=== PATIENT | female | born 1990 | race Caucasian/White ===

== ENCOUNTER → 2017-01-24 | Outpatient (CLI) | payer BC | END | disposition home or self-care (01) | LOC: LABWHC1 11:50 | PROVIDERS: ATTEND Obstetrics & Gynecology | DX: Z34.01 Encounter for supervision of normal first pregnancy, first trimester (principal); Z3A.00 Weeks of gestation of pregnancy not specified | CPT/HCPCS: 36415; 84702; 86850; 86900; 86901 ==

== ENCOUNTER → 2017-01-26 | Outpatient (CLI) | payer BC | END | disposition home or self-care (01) | LOC: LABWHC1 07:34 | PROVIDERS: ATTEND Obstetrics & Gynecology | DX: Z34.01 Encounter for supervision of normal first pregnancy, first trimester (principal) | CPT/HCPCS: 36415; 84702 ==

== ENCOUNTER 2017-08-16 09:12 | Outpatient (CLI) | payer BC ==
[2017-08-16 13:16] VITALS: BP 131/73; PULSE 87; RESP 18; TEMP 98.5
--- NOTE | 2017-08-17 06:35 | P.MSEPDOC ---
Presenting Problems - Arrival Data Date of Arrival on Unit: 08/16/17 Time of Arrival on Unit: 09:12 Mode of Transport: Ambulatory - Complaint OB-Reason for Admission/Chief Complaint: Decreased Movement Medical History - Information : 1 Para: 0 Term: 0 : 0 Abortions: Spontaneous or Elective: 0 Number of Living Children: 0 - Gestational Age Gestational Age by SALINA (wks/days): 33 Weeks and 3 Days Review of Systems - Review of Systems Constitutional: No problems Breast: No problems ENT: No problems Cardiovascular: No problems Respiratory: No problems Gastrointestinal: No problems Genitourinary: No problems Musculoskeletal: No problems Neurological: No problems Skin: No problems Vital Signs - Temperature Temperature: 98.5 F Temperature Source: Temporal Artery Scan - Pulse Brachial Pulse Rate: 87 Pulse Assessment Method: Automatic Cuff - Respirations Respiratory Rate: 18 Oxygen Delivery Method: Room Air O2 Sat by Pulse Oximetry: 97 - Blood Pressure Right Arm Blood Pressure: 131/73 Blood Pressure Mean: 92 Blood Pressure Source: Automatic Cuff Medical Screen Scoring (Pre) - Cervical Exam Dilation: Exam Deferred Effacement: Exam Deferred Membranes: Intact - Uterine Contractions Frequency: N/A Duration: N/A Intensity: N/A - Maternal Vital Signs Maternal Temperature: N/A Maternal Blood Pressure: N/A Signs of Preeclampsia: N/A Maternal Respirations: N/A - Pain Assessment Pain Scale Used: Numeric (1 - 10) Pain Intensity: 0 - Assessment Baseline FHR: 140 Heart Rate - NICHD Category: Category I (Normal) = 0 NST: Reactive Position: N/A Station: N/A - Total Score Total Score (Pre): 0 Physician Notification (Pre) - Physician Notified Physician Notified Date: 08/16/17 Physician Notified Time: 09:50 Physician/Practitioner Notifed:: dr grant Spoke With: dr grant - Notification Comment Comment: Monitor in triage for a full hour and then if reactive nst may discharge home. Disposition - Disposition OB Disposition: Triage, Discharge to home, Written follow up instructions reviewed Discharge Date: 08/16/17 Discharge Time: 10:25 I agree with the RN Medical Screening Exam: Yes Risk & Benefit of care provided described in d/c instruction: Yes Diagnosis: RELATED CONDITIONS, UNSPECIFIED, THIRD TRIMESTER
== END 2017-08-16 10:25 | disposition home or self-care (01) ==
LOC: FBPOP 09:12
PROVIDERS: ATTEND Obstetrics & Gynecology
DX: O26.93 Pregnancy related conditions, unspecified, third trimester (principal); Z3A.33 33 weeks gestation of pregnancy
CPT/HCPCS: 59025; 99213

== ENCOUNTER 2017-09-28 05:44 | Inpatient (IN) | payer BC ==
[2017-09-28] MEDS ORDERED: CARBOPROST TROMETHAMINE 250 MCG/ML 1 ML AMP IM PRN (05:54)
[2017-09-28] MEDS ORDERED: METHYLERGONOVINE 0.2 MG/ML 1 ML AMP IM PRN (05:54)
[2017-09-28] MEDS ORDERED: OXYTOCIN 20 UNITS/1000 ML NS 1,000 ML IV SCH ×2 (05:54→14:46)
[2017-09-28] MEDS ORDERED: LIDOCAINE 1% (PF) 10 MG/ML (30 ML SDV) SQ PRN (05:54)
[2017-09-28] MEDS ORDERED: TERBUTALINE 1 MG/ML VIAL SQ PRN (05:54)
[2017-09-28] MEDS ORDERED: OXYTOCIN 10 UNIT/ML 1 ML VIAL IM PRN (05:54)
[2017-09-28] MEDS: LACTATED RINGERS 1,000 ML IV SCH ×3 (06:00→11:54)
--- NOTE | 2017-09-28 06:10 | P.HPOB ---
History of Present Illness H&P Date: 09/28/17 Chief Complaint: Requested induction of labor. This patient is a pleasant 27-year-old 1 para 0 female estimated date of confinement 10/01/2017 estimated gestational age 39-4/7 weeks gestation who is admitted to labor and delivery for requested induction of labor. Patient's care has been uncomplicated. Patient and her at this time have requested induction of labor. Review of Systems Gastrointestinal: Reports heartburn Genitourinary: Reports Menstruation: Reports amenorrhea Past Medical History Past Medical History: No Reported History History of Any Multi-Drug Resistant Organisms: None Reported Past Surgical History: Orthopedic Surgery Past Anesthesia/Blood Transfusion Reactions: No Reported Reaction Past Psychological History: No Psychological Hx Reported Smoking Status: Never smoker Past Alcohol Use History: None Reported Past Drug Use History: None Reported Medications and Allergies Home Medications Medication Instructions Recorded Confirmed Type Pnv,Calcium 72/Iron/Folic Acid 1 tab PO DAILY 08/16/17 09/28/17 History [ Plus Tablet] Allergies Allergy/AdvReac Type Severity Reaction Status Date / Time No Known Allergies Allergy Verified 09/28/17 05:53 Exam - Vital Signs Vital signs: Intake and Output 09/27/17 09/27/17 09/28/17 14:59 22:59 06:59 Other: Weight 83.007 kg - OBG Physical Exam Abdomen: bowel sounds normal, no diffuse tenderness, no bruit present, no guarding noted, no hepatomegaly, no splenomegaly, no mass Vulva: both: normal Vagina: normal moisture, no discharge Cervix: Cervix is 2 cm 80% effaced -2 station. Cervix: no lesion, no discharge Uterus: enlarged (Fundal height is 39 cm) Results blood work shows she is O positive, rubella immune, RPR nonreactive, hepatitis B negative, Glucola was abnormal with a normal three-hour gtt. Group B strep was negative, ultrasounds have showed adequate growth with estimated weight at this time is 8 pounds. Assessment and Plan (1) Third trimester Narrative/Plan: This is a pleasant 27-year-old 1 para 0 female 39-4/7 weeks gestation admitted to labor and delivery for requested induction of labor. Plan at this time is induction of labor and anticipate vaginal delivery. Current Visit: Yes Status: Acute Code(s): Z34.93 - ENCNTR FOR SUPRVSN OF NORMAL PREG, UNSP, THIRD TRIMESTER SNOMED Code(s): 50050238 (2) Elective induction of labor planned Current Visit: Yes Status: Acute Code(s): MBH0613 - SNOMED Code(s): 499660606
[2017-09-28 06:23] LABS: Basophils # (A) 0.1 k/uL (0-0.2); Basophils % (A) 1 %; Eosinophils # (A) 0.1 k/uL (0-0.7); Eosinophils % (A) 1 %; HCT 39.8 % (34.0-46.0); Lymphocytes # (A) 1.5 k/uL (1.0-4.8); Lymphocytes % (A) 15 %; MCHC 35.3 g/dL (31.0-37.0); MCV 87.8 fL (80.0-100.0); Mean Platelet Volume 7.9; Monocytes # (A) 0.6 k/uL (0-1.0); Monocytes % (A) 6 %; Neutrophils # (A) 7.4 k/uL (1.3-7.7); Neutrophils % (A) 76 %; Platelet Count 202 k/uL (150-450); RBC 4.53 m/uL (3.80-5.40); RDW 12.8 % (11.5-15.5); WBC 9.8 k/uL (3.8-10.6)
[2017-09-28 07:35] VITALS: BMI 27.8
[2017-09-28] MEDS ORDERED: fentaNYL (PF) 50 MCG/ML 5 ML AMP ONE (09:23)
[2017-09-28] MEDS ORDERED: SODIUM CHLORIDE 0.9% 100 ML BAG ONE (09:23)
[2017-09-28] MEDS ORDERED: BUPIVACAINE (PF) 0.25% 30 ML VIAL ONE (09:23)
[2017-09-28] MEDS ORDERED: BUPIVACAINE (PF) 0.5% 12.5 ML, fentaNYL (PF) 200 MCG in SODIUM CHLORIDE 0.9% 83.5 ML EPIDURAL ONE (10:07)
[2017-09-28] MEDS ORDERED: BENZOCAINE/MENTHOL SPRAY 1 GM/SPRAY AEROSOL TOPICAL PRN (14:46)
[2017-09-28] MEDS ORDERED: WITCH HAZEL 1 EACH MED..PAD TOPICAL PRN (14:46)
[2017-09-28] MEDS ORDERED: diphenhydrAMINE 25 MG CAP PO PRN (14:46)
[2017-09-28] MEDS ORDERED: BISACODYL 10 MG SUPP RECTAL PRN (14:46)
[2017-09-28] MEDS ORDERED: SENNOSIDES-DOCUSATE SODIUM 1 EACH TAB PO SCH (14:46)
[2017-09-28] MEDS ORDERED: HYDROCORTISONE 2.5% RECTAL CREAM 30 GM TUBE RECTAL PRN (14:46)
[2017-09-28] MEDS ORDERED: diphenhydrAMINE 50 MG/ML 1 ML VIAL IVP PRN (14:46)
[2017-09-28] MEDS ORDERED: SIMETHICONE 80 MG CHEWABLE PO PRN (14:46)
[2017-09-28] MEDS ORDERED: LANOLIN CREAM 5 GM TUBE TOPICAL PRN (14:46)
[2017-09-28] MEDS ORDERED: ACETAMINOPHEN TAB 325 MG TAB PO PRN (14:46)
[2017-09-28] MEDS ORDERED: ZOLPIDEM 5 MG TAB PO PRN (14:46)
[2017-09-28] MEDS: IBUPROFEN 600 MG TAB PO PRN (15:59)
--- NOTE | 2017-09-28 17:26 | P.PROBDLV ---
Vaginal Delivery Note - . Vaginal Delivery Note: Normal vaginal delivery viable female Apgars are 9 and 9 delivery time is 1422 hrs. Please see dictated H&P for intimate details of this patient's admission. In brief summary this is a pleasant 27-year-old 1 para 0 female 39-4/7 weeks gestation who is admitted to labor and delivery for requested induction of labor. Patient this morning is 3 cm dilated has artificial rupture membranes for clear fluid. Labor is induced with Pitocin per protocol. Patient progresses she does get an epidural for pain control with good relief. Quickly thereafter she continues to progress at that time she is pushing involuntarily and does have some bradycardia to the 80s that does return to baseline between contractions. Patient continues to have bradycardic episodes and is complete and +2 station for this reason infiltrate posterior perineum with 1% lidocaine and a midline episiotomy is made. With approximately 2 pushes thereafter she delivers infant's head over the perineum. Mouth and nares are bulb suctioned. There is no evidence of nuchal cord. Gentle downward traction deliver the anterior and posterior shoulder and rest this infant's body. This is a vigorous viable female infant Apgars are 9 and 9 delivery time is 1422 hrs. has spontaneous respirations and good cry. After delivery of the the infant is late on the mother's abdomen. After the umbilical cord stopped pulsating the cord is doubly clamped and cut. The placenta is then spontaneously delivered intact. She does have a few gushes of blood but the uterus firms up with massage and IV Pitocin. Inspection of the perineum shows a partial third-degree laceration. The rectal sphincter capsule is not completely disrupted. I infiltrate with lidocaine and isolate the portion of the capsule that is disrupted and reapproximate this with interrupted 3-0 Vicryl 4. Excellent reapproximation is noted. The rest of the episiotomy is repaired with 3-0 Vicryl usual fashion. Excellent reapproximation is noted again. Estimated blood loss is probably 400 mL from the uterine atony and from some bleeding but this does respond well as I stated with Pitocin and uterine massage. and mother are stable delivery room. All counts are correct 3. There are no complications.
[2017-09-28 23:44] VITALS: RESP 16
[2017-09-29] MEDS ORDERED: IBUPROFEN 600 MG TAB PO ONE (04:50)
[2017-09-29 05:50] LABS: Basophils % (A) 0 %; Eosinophils % (A) 0 %; HCT 26.8 % (34.0-46.0); Lymphocytes # (A) 1.2 k/uL (1.0-4.8); Lymphocytes % (A) 10 %; MCH 29.8 pg (25.0-35.0); MCHC 34.6 g/dL (31.0-37.0); MCV 86.2 fL (80.0-100.0); Mean Platelet Volume 7.9; Monocytes # (A) 0.7 k/uL (0-1.0); Monocytes % (A) 5 %; Neutrophils # (A) 10.5 k/uL (1.3-7.7); Neutrophils % (A) 84 %; Platelet Count 200 k/uL (150-450); RBC 3.11 m/uL (3.80-5.40); WBC 12.6 k/uL (3.8-10.6)
[2017-09-29 05:53] LABS: HGB 9.3 gm/dL (11.4-16.0)
--- NOTE | 2017-09-29 05:59 | P.PNOBGVD ---
Subjective - Subjective Patient reports: Reports appetite normal, Reports voiding normally, Reports pain well controlled, Reports ambulating normally : doing well Objective - Latest Vital Signs Latest vital signs: Vital Signs Temp Pulse Resp BP 09/28/17 23:41 98.4 F 92 16 117/74 09/28/17 20:00 98.5 F 102 H 18 138/71 09/28/17 16:48 97.9 F 96 14 122/69 09/28/17 16:18 126 H 16 111/56 09/28/17 15:48 121 H 14 117/65 09/28/17 15:27 117 H 14 126/65 09/28/17 15:18 105 H 16 130/63 09/28/17 15:03 114 H 16 114/56 09/28/17 14:48 97 F L 126 H 16 09/28/17 07:26 97.2 F L 131 H 16 Intake and Output 09/28/17 09/28/17 09/29/17 14:59 22:59 06:59 Intake Total 200 Balance 200 Intake: IV 200 Lactated Ringers 1,000 ml 200 @ 125 mls/hr IV .Q8H [facility] Rx#:[id number] Other: # Voids 1 1 Weight 83.007 kg - Exam Lungs: bilateral: normal Chest: Normal S1, Normal S2 Extremities: Present: normal Abdomen: Present: normal appearance, soft Uterus: Present: normal, firm - Labs Labs: Abnormal Lab Results - Last 24 Hours (Table) 09/29/17 Range/Units 05:00 WBC 12.6 H (3.8-10.6) k/uL RBC 3.11 L (3.80-5.40) m/uL Hgb 9.3 L D (11.4-16.0) gm/dL Hct 26.8 L (34.0-46.0) % Neutrophils # 10.5 H (1.3-7.7) k/uL Assessment and Plan Assessment: day #1. Patient is resting without complaints. She wishes to go home later today. Vital signs are stable she is afebrile. Uterus is firm nontender and she is having normal lochia. Hemoglobin today is 9.3. Patient is ambulating and urinating without difficulty. My impression is a normal course. Plan is to continue routine care most likely go home later today. (1) Third trimester Current Visit: Yes Status: Acute Code(s): Z34.93 - ENCNTR FOR SUPRVSN OF NORMAL PREG, UNSP, THIRD TRIMESTER SNOMED Code(s): 59191057 (2) Elective induction of labor planned Current Visit: Yes Status: Acute Code(s): IDK6029 - SNOMED Code(s): 643831322
--- NOTE | 2017-09-29 06:04 | P.DS ---
Providers Date of admission: 09/28/17 05:44 Expected date of discharge: 09/29/17 Attending physician: Nicolas Brown Primary care physician: Hunter Ambrosio - Discharge Diagnosis(es) (1) Third trimester Current Visit: Yes Status: Acute (2) Elective induction of labor planned Current Visit: Yes Status: Acute Hospital Course: Please see dictated H&P for intimate details of this patient's admission. Brief summary this is a pleasant 27-year-old 1 para 0 female 39-4/7 weeks gestation who is admitted to labor and delivery for requested induction of labor. Patient is admitted she has induction of labor goes on have a vaginal delivery viable female infant. Please see dictated delivery note. day 1 patient Procedures: Induction of labor and normal vaginal delivery. Patient Condition at Discharge: Good Plan - Discharge Summary New Discharge Prescriptions: New Ibuprofen [Motrin] 600 mg PO Q6HR PRN #40 tab PRN Reason: Mild Pain Or Fever >= 100.5 No Action Pnv,Calcium 72/Iron/Folic Acid [ Plus Tablet] 1 tab PO DAILY Discharge Medication List Pnv,Calcium 72/Iron/Folic Acid [ Plus Tablet] 1 tab PO DAILY 08/16/17 [ History] Ibuprofen [Motrin] 600 mg PO Q6HR PRN #40 tab 09/29/17 [Rx] Follow up Appointment(s)/Referral(s): Nicolas Brown MD [STAFF PHYSICIAN] - 11/09/17 9:30 am Patient Instructions/Handouts: Vaginal Delivery (DC) Activity/Diet/Wound Care/Special Instructions: No intercourse or anything per vagina for 6 weeks. Please call if any fever, chills, excessive vaginal bleeding, and/or abdominal pain. Discharge Disposition: HOME SELF-CARE
[2017-09-29 08:12] VITALS: BP 129/74; PULSE 91; TEMP 98.5
[2017-09-29] MEDS: IBUPROFEN 600 MG TAB PO PRN (11:19)
== END 2017-09-29 15:32 | disposition home or self-care (01) | DRG 774 ==
LOC: 4FBP 05:44
PROVIDERS: ADMIT Obstetrics & Gynecology; ATTEND Obstetrics & Gynecology
PROC: 3E0R3NZ Introduction of Analgesics, Hypnotics, Sedatives into Spinal Canal, Percutaneous Approach (ICD-10-PCS; principal; 2017-09-28)
PROC: 0DQR0ZZ Repair Anal Sphincter, Open Approach (ICD-10-PCS; principal; 2017-09-28)
PROC: 10E0XZZ Delivery of Products of Conception, External Approach (ICD-10-PCS; principal; 2017-09-28)
PROC: 00HU33Z Insertion of Infusion Device into Spinal Canal, Percutaneous Approach (ICD-10-PCS; principal; 2017-09-28)
PROC: 10907ZC Drainage of Amniotic Fluid, Therapeutic from Products of Conception, Via Natural or Artificial Opening (ICD-10-PCS; principal; 2017-09-28)
PROC: 0W8NXZZ Division of Female Perineum, External Approach (ICD-10-PCS; principal; 2017-09-28)
PROC: 3E033VJ Introduction of Other Hormone into Peripheral Vein, Percutaneous Approach (ICD-10-PCS; principal; 2017-09-28)
DX: O76 Abnormality in fetal heart rate and rhythm complicating labor and delivery (principal); O72.1 Other immediate postpartum hemorrhage; O70.20 Third degree perineal laceration during delivery, unspecified; Z37.0 Single live birth; Z3A.39 39 weeks gestation of pregnancy
CPT/HCPCS: 85025; 88307

== ENCOUNTER 2019-10-15 22:16 | Inpatient (IN) | payer BC ==
[2019-10-15 23:15] LABS: Appearance,Urine Clear (Clear); Bilirubin,Urine Negative (Negative); Blood,Urine Negative (Negative); Color,Urine Colorless; Glucose,Urine (UA) Negative (Negative); Ketones,Urine Negative (Negative); Leukocyte Esterase,Urine Negative (Negative); Nitrite,Urine Negative (Negative); PH, Urine 6.5 (5.0-8.0); Protein,Urine Negative (Negative); Specific Gravity,Urine 1.002 (1.001-1.035); Urobilinogen,Urine <2.0 mg/dL (<2.0)
[2019-10-15 23:19] LABS: Basophils % (A) 0 %; Eosinophils % (A) 1 %; HCT 37.2 % (34.0-46.0); HGB 12.6 gm/dL (11.4-16.0); Lymphocytes # (A) 1.5 k/uL (1.0-4.8); Lymphocytes % (A) 15 %; MCH 29.8 pg (25.0-35.0); MCV 87.7 fL (80.0-100.0); Mean Platelet Volume 8.8; Monocytes # (A) 0.5 k/uL (0-1.0); Monocytes % (A) 5 %; Neutrophils # (A) 7.2 k/uL (1.3-7.7); Neutrophils % (A) 77 %; Platelet Count 220 k/uL (150-450); RBC 4.24 m/uL (3.80-5.40); RDW 12.6 % (11.5-15.5); WBC 9.4 k/uL (3.8-10.6)
[2019-10-15 23:32] LABS: ALT 8 U/L (4-34); AST 17 U/L (14-36); African American GFR (CKD) >90 (>60 ml/min/1.73 sqM); Blood Urea Nitrogen 6 mg/dL (7-17); LDH 340 U/L (313-618); Non-African American GFR(CKD) >90 (>60 ml/min/1.73 sqM); Uric Acid 3.9 mg/dL (3.7-7.4)
[2019-10-15 23:33] LABS: Protein/Creatinine Ratio,Urine 1.04
[2019-10-15 23:41] LABS: INR 0.9 (<1.2); Partial Thromboplastin Time 24.3 sec (22.0-30.0); Prothrombin Time 9.4 sec (9.0-12.0)
--- NOTE | 2019-10-16 01:23 | P.HPOB ---
History of Present Illness H&P Date: 10/16/19 Chief Complaint: Intrauterine at 38 weeks 5 days gestation with pr oteinuria Patient is a 29-year-old G3 to be 1 at 38 weeks 5 days gestation who I spoke with earlier this evening who related that she had an elevated blood pressure at home and had a severe headache. She was instructed to go to labor and delivery where she was evaluated. A category 1 tracing has been noted. It is noted in her laboratory studies that predominantly they were normal. Platelets are 220, AST and ALT are well within normal limits, urine protein is actually showing negative however, her protein creatinine ratio is above 1. This would typically indicate and correlate to a spot protein of 1000 ordered 3-4+ is unclear from my standpoint why there is such a large discrepancy. Due to this abnormal finding and with her continuing to have significant headache and some visual changes indicate potential for severe features of preeclampsia we have discussed specific options for her continued care and evaluation. I did offer to initiate a 24-hour urine and we can verify if her protein really was greater than [address] and make a decision on what to do from that value. I also discussed an induction of labor as she is 38 weeks with suspected atypical preeclampsia. It is noted that she is had almost no elevated blood pressures around her stay and until she and I were discussing delivery plan and she was becoming a little anxious with that her blood pressures did not show any elevation however at that point she had a 140/80 blood pressure. I did allow she and her discussed what they would most want to do as I explained that the only option that I was not really interested in discussing was discharge her to home despite having multiple normal blood pressures as without more evaluation I could not be certain that she did not have or she was not going to become significantly worse due to the protein creatinine ratio being elevated. She has decided that they would like to go ahead and move forward with an induction will plan to admit her and start IV her group B strep is negative therefore we will plan artificial rupture membranes and expectation for delivery later this morning. She had no other significant problems with the has not had any other elevations in her blood pressure throughout the . Of and she is otherwise in very good health. Past Medical History Past Medical History: No Reported History History of Any Multi-Drug Resistant Organisms: None Reported Past Surgical History: Orthopedic Surgery Additional Past Surgical History / Comment(s): knee surgery Past Anesthesia/Blood Transfusion Reactions: No Reported Reaction Smoking Status: Never smoker - Past Family History Father Family Medical History: AFIB, Hypertension Medications and Allergies Home Medications Medication Instructions Recorded Confirmed Type Pnv,Calcium 72/Iron/Folic Acid 1 tab PO DAILY 08/16/17 10/15/19 History [ Plus Tablet] Allergies Allergy/AdvReac Type Severity Reaction Status Date / Time No Known Allergies Allergy Verified 10/15/19 22:30 Exam Osteopathic Statement: *. No significant issues noted on an osteopathic structural exam other than those noted in the History and Physical/Consult. Vital Signs Temp Pulse Resp BP Pulse Ox 10/15/19 22:45 98.1 F 83 18 126/80 98 Intake and Output 10/15/19 10/15/19 10/16/19 14:59 22:59 06:59 Other: Weight 81.647 kg - OBG Physical Exam Breast: both: normal (no masses) Abdomen: bowel sounds normal, no diffuse tenderness, no bruit present, no guarding noted, no hepatomegaly, no splenomegaly, no mass Vulva: both: normal Vagina: normal moisture, no discharge Cervix: no lesion, no discharge Uterus: normal size, normal contour Adnexa: both: normal Anus/Rectum: normal perianal skin, no rectal mass, no hemorrhoids, heme negative Results Result Diagrams: 10/15/19 23:09 10/15/19 23:09 Abnormal Lab Results - Last 24 Hours (Table) 10/15/19 Range/Units 23:09 BUN 6 L (7-17) mg/dL Creatinine 0.39 L (0.52-1.04) mg/dL
[2019-10-16] MEDS ORDERED: TERBUTALINE 1 MG/ML VIAL SQ PRN (01:33)
[2019-10-16] MEDS ORDERED: OXYTOCIN 10 UNIT/ML 1 ML VIAL IM PRN (01:33)
[2019-10-16] MEDS ORDERED: CARBOPROST TROMETHAMINE 250 MCG/ML 1 ML AMP IM PRN (01:33)
[2019-10-16] MEDS ORDERED: LIDOCAINE 0.5% (PF) 5 MG/ML (50 ML SDV) SQ PRN (01:33)
[2019-10-16] MEDS ORDERED: METHYLERGONOVINE 0.2 MG/ML 1 ML AMP IM PRN (01:33)
[2019-10-16] MEDS ORDERED: OXYTOCIN 30 UNITS/500 ML NS 30 UNIT in SALINE 1 500ML.BAG IV SCH (01:45)
[2019-10-16] MEDS: LACTATED RINGERS 1,000 ML IV SCH ×2 (02:24→05:48)
[2019-10-16 02:44] LABS: Basophils % (A) 0 %; Eosinophils % (A) 0 %; HCT 40.2 % (34.0-46.0); HGB 13.5 gm/dL (11.4-16.0); Lymphocytes # (A) 1.7 k/uL (1.0-4.8); Lymphocytes % (A) 14 %; MCH 29.5 pg (25.0-35.0); MCHC 33.7 g/dL (31.0-37.0); MCV 87.4 fL (80.0-100.0); Mean Platelet Volume 8.2; Monocytes # (A) 0.6 k/uL (0-1.0); Monocytes % (A) 5 %; Neutrophils # (A) 9.6 k/uL (1.3-7.7); Neutrophils % (A) 79 %; Platelet Count 222 k/uL (150-450); RDW 12.6 % (11.5-15.5); WBC 12.1 k/uL (3.8-10.6)
[2019-10-16] MEDS ORDERED: ROPIVACAINE 100 MG, fentaNYL (PF) 200 MCG in SODIUM CHLORIDE 0.9% 76 ML EPIDURAL ONE (06:25)
[2019-10-16] MEDS ORDERED: SIMETHICONE 80 MG CHEWABLE PO PRN (10:42)
[2019-10-16] MEDS ORDERED: LANOLIN CREAM 5 GM TUBE TOPICAL PRN (10:42)
[2019-10-16] MEDS ORDERED: HYDROCORTISONE 2.5% RECTAL CREAM 30 GM TUBE RECTAL PRN (10:42)
[2019-10-16] MEDS ORDERED: diphenhydrAMINE 50 MG/ML 1 ML VIAL IVP PRN ×2 (10:42)
[2019-10-16] MEDS ORDERED: BENZOCAINE/MENTHOL SPRAY 1 GM/SPRAY AEROSOL TOPICAL PRN (10:42)
[2019-10-16] MEDS ORDERED: ACETAMINOPHEN TAB 325 MG TAB PO PRN (10:42)
[2019-10-16] MEDS ORDERED: diphenhydrAMINE 50 MG CAP PO PRN (10:42)
[2019-10-16] MEDS ORDERED: diphenhydrAMINE 25 MG CAP PO PRN (10:42)
[2019-10-16] MEDS ORDERED: WITCH HAZEL 1 EACH MED..PAD TOPICAL PRN (10:42)
[2019-10-16] MEDS ORDERED: ZOLPIDEM 5 MG TAB PO PRN (10:42)
[2019-10-16] MEDS ORDERED: OXYTOCIN 20 UNITS/1000 ML NS 1,000 ML IV SCH (10:45)
--- NOTE | 2019-10-16 13:06 | P.PROBDLV ---
Vaginal Delivery Note - . Vaginal Delivery Note: 29-year-old presented at 38 weeks and 5 days to labor and delivery. Her cervix is 1-2 cm dilated, 70% effaced, -2 station. Please see dictated H&P by for specific details on admission and reason for induction of labor. Pitocin was started and amniotomy was performed at 2:58 AM, clear fluid noted. She progressed about 3 cm and did get an epidural. Her cervix was completely dilated 9:52 AM. She pushed, delivered a viable male over a midline episiotomy under epidural anesthesia. Head delivered OA, nuchal cord 1 easily reduced, anterior shoulder delivered gentle downward guidance follow-up with posterior shoulder and rest of body. Nose and mouth bulb suctioned, cord clamped and cut, placed on mother's abdomen. Apgars 9, 9, weight 7 lbs. 10 oz. Placenta delivered spontaneously, intact with three-vessel cord at 10:07 AM. Vagina, cervix, and perineum were inspected. Secondary midline episiotomy was repaired with 3-0 Vicryl. The patient then had some atony, Pitocin had been added to her IV and uterine massage was enough to stop her bleeding. Quantitated blood loss 545 mL from delivery.
[2019-10-16] MEDS: IBUPROFEN 600 MG TAB PO PRN ×2 (14:26→20:57)
[2019-10-16] MEDS: SENNOSIDES-DOCUSATE SODIUM 1 EACH TAB PO SCH (20:53)
[2019-10-17] MEDS: IBUPROFEN 600 MG TAB PO PRN (05:29)
--- NOTE | 2019-10-17 06:15 | P.DS ---
Providers Date of admission: 10/16/19 01:22 Expected date of discharge: 10/17/19 Attending physician: Nicolas Brown Primary care physician: Stated None - Discharge Diagnosis(es) (1) Pre-eclampsia Current Visit: Yes Status: Acute (2) Normal vaginal delivery Current Visit: Yes Status: Acute Hospital Course: Patient presented complaining of a headache and blurred vision and increased blood pressure at home. She was found to have a PC ratio over 1 but all other labs were within normal limits. Her blood pressures here were mostly normal. When she did have one or 2 elevated pressures of 140/80. She underwent induction of labor at 38 weeks and 5 days for atypical preeclampsia. She had a normal vaginal delivery. course was uncomplicated. Her headache is resolved and she doesn't have any more blurred vision. She denies nausea, vomiting, chest pain, shortness of breath or any calf pain. Blood pressures are normal. She'll be discharged home day #1 in stable condition to follow-up with Dr. Brown in 6 weeks. We did discuss that if she has increase in her headaches or blurred vision, right upper quadrant pain she needs to come in for a blood pressure check. Plan - Discharge Summary New Discharge Prescriptions: New Ibuprofen [Motrin] 600 mg PO Q6HR PRN #30 tab PRN Reason: Mild Pain Or Fever >= 100.5 No Action Pnv,Calcium 72/Iron/Folic Acid [ Plus Tablet] 1 tab PO DAILY Discharge Medication List Pnv,Calcium 72/Iron/Folic Acid [ Plus Tablet] 1 tab PO DAILY 08/16/17 [History] Ibuprofen [Motrin] 600 mg PO Q6HR PRN #30 tab 10/17/19 [Rx] Follow up Appointment(s)/Referral(s): Nicolas Brown MD [STAFF PHYSICIAN] - 6 Weeks Discharge Disposition: HOME SELF-CARE
[2019-10-17 07:57] LABS: Basophils % (A) 0 %; Eosinophils # (A) 0.1 k/uL (0-0.7); Eosinophils % (A) 0 %; HCT 32.2 % (34.0-46.0); HGB 11.1 gm/dL (11.4-16.0); Lymphocytes # (A) 1.2 k/uL (1.0-4.8); Lymphocytes % (A) 11 %; MCH 30.6 pg (25.0-35.0); MCHC 34.4 g/dL (31.0-37.0); MCV 88.8 fL (80.0-100.0); Mean Platelet Volume 8.9; Monocytes # (A) 0.5 k/uL (0-1.0); Monocytes % (A) 4 %; Neutrophils # (A) 9.7 k/uL (1.3-7.7); Neutrophils % (A) 84 %; Platelet Count 210 k/uL (150-450); RBC 3.62 m/uL (3.80-5.40); RDW 12.8 % (11.5-15.5); WBC 11.6 k/uL (3.8-10.6)
[2019-10-17] MEDS: SENNOSIDES-DOCUSATE SODIUM 1 EACH TAB PO SCH (08:06)
[2019-10-17 08:48] VITALS: BP 109/71; PULSE 93; RESP 18; TEMP 98.4
[2019-10-17] MEDS ORDERED: PRENATAL VIT-IRON-FOLIC ACID 1 EACH CAP PO SCH (09:00)
== END 2019-10-17 11:30 | disposition home or self-care (01) | DRG 807 ==
LOC: FBPOP 22:16 → 4FBP 10-16 01:22 → OBSVTOIN 10-16 01:22
PROVIDERS: ADMIT Obstetrics & Gynecology; ATTEND Obstetrics & Gynecology
PROC: 10E0XZZ Delivery of Products of Conception, External Approach (ICD-10-PCS; principal; 2019-10-16)
PROC: 0W8NXZZ Division of Female Perineum, External Approach (ICD-10-PCS; 2019-10-16)
PROC: 3E0R3BZ Introduction of Anesthetic Agent into Spinal Canal, Percutaneous Approach (ICD-10-PCS; 2019-10-16)
PROC: 3E033VJ Introduction of Other Hormone into Peripheral Vein, Percutaneous Approach (ICD-10-PCS; 2019-10-16)
PROC: 10907ZC Drainage of Amniotic Fluid, Therapeutic from Products of Conception, Via Natural or Artificial Opening (ICD-10-PCS; 2019-10-16)
DX: O14.14 Severe pre-eclampsia complicating childbirth (principal); Z37.0 Single live birth; O69.81X0 Labor and delivery complicated by cord around neck, without compression, not applicable or unspecified; Z3A.38 38 weeks gestation of pregnancy; Z79.899 Other long term (current) drug therapy; Z82.49 Family history of ischemic heart disease and other diseases of the circulatory system; Z98.890 Other specified postprocedural states
CPT/HCPCS: 59025; 81003; 81050; 82565; 82570; 83615; 84156; 84450; 84460; 84520; 84550; 85025; 85610; 85730; 86850; 86900; 86901; 88307; 99213

== ENCOUNTER → 2021-01-23 | Outpatient (CLI) | payer BC ==
--- NOTE | 2021-01-23 08:53 | US ---
EXAMINATION TYPE: US axilla RT DATE OF EXAM: 01/23/2021 COMPARISON: NONE CLINICAL HISTORY: R59.9 enlarged lymph nodes. Enlarged lymph nodes. Scanned right axilla. Hypoechoic area with hyperechoic center and vascular hilum seen measuring 3.0 x 1.4 x 0.9 cm. IMPRESSION: Nonspecific right axillary lymph node.
--- NOTE | 2021-01-23 08:54 | US ---
EXAMINATION TYPE: US axilla LT DATE OF EXAM: 01/23/2021 COMPARISON: NONE CLINICAL HISTORY: R59.9 enlarged lymph nodes. Enlarged lymph nodes. Scanned left axilla. Two hypoechoic areas with hyperechoic centers and vascular neno seen within the left axilla. #1 measu res 2.2 x 1.1 x 0.4 cm. #2 measures: 1.5 x 1.5 x 0.5 cm. IMPRESSION: Left axillary lymph nodes are nonspecific.
== END | disposition home or self-care (01) ==
LOC: RADUSWWP 08:28
PROVIDERS: ATTEND Family Medicine
DX: R59.0 Localized enlarged lymph nodes (principal)

== ENCOUNTER → 2021-06-19 | Outpatient (CLI) | payer BC ==
[2021-06-19 10:26] VITALS: BP 128/80; PULSE 66; RESP 16; TEMP 98.2
--- NOTE | 2021-06-19 10:59 | P.GSHP ---
History of Present Illness H&P Date: 06/19/21 Chief Complaint: breast masses Jigna is a 31 year old female seen in consultation for Dr. Brown regarding bilateral breast masses. She states she noted the left side first about 2 months ago. She states the right side was noted shortly later. They are not painful. She just finished breast feeding two months ago. Last year she was noted to have some enlarged nodes under each arm. She states they have decreased in size. She has two children the youngest is 1 1/2, she breast fed both. Is not having any abnormal nipple discharge. She has not noted any other lumps masses or nodules of concern in her breast. She's not had any surgery on her breast. She is not complaining of any recent trauma or infection in the breast. CAffiene: 1-2 cups coffee/day nicotine: none chocolate: occasional BCP: used them 5 years, stopped in 2016 hormones: none Family history: maternal grandmother: colon cancer paternal grandmother: colon cancer paternal grandfather: leukemia Hormonal History: Menarche: 15 , breast fed: yes, age at first : 27 BCP: 5 years stopped in 2016 hormones: none Surgical history: two knee surgeries left knee Medical History: none Social History: nicotine: none alcohol: occasional drugs: none - Constitutional Constitutional: Denies chills, Denies fever - EENT Eyes: denies blurred vision, denies pain Ears: deny: decreased hearing, tinnitus Ears, nose, mouth and throat: Denies headache, Denies sore throat - Breasts Breasts: bilateral: as per HPI - Cardiovascular Cardiovascular: Denies chest pain, Denies shortness of breath - Respiratory Respiratory: Denies cough, Denies 7 - Gastrointestinal Gastrointestinal: Denies abdominal pain, Denies diarrhea, Denies nausea, Denies vomiting - Genitourinary (Female) Genitourinary: Denies dysuria, Denies hematuria - Menstruation Comment: irregular, just stopped breast feeding two months ago - Musculoskeletal Musculoskeletal: Denies myalgias - Integumentary Integumentary: Denies pruritus, Denies rash - Neurological Neurological: Denies numbness, Denies weakness - Psychiatric Psychiatric: Denies anxiety, Denies depression - Endocrine Endocrine: Denies fatigue, Denies weight change - Hematologic/Lymphatic Comment: none - Allergic/Immunologic Allergic/Immunologic: Reports as per HPI Past Medical History Past Medical History: No Reported History History of Any Multi-Drug Resistant Organisms: None Reported Past Surgical History: Orthopedic Surgery Additional Past Surgical History / Comment(s): knee surgery Past Anesthesia/Blood Transfusion Reactions: No Reported Reaction Past Psychological History: No Psychological Hx Reported Smoking Status: Never smoker Past Alcohol Use History: None Reported Past Drug Use History: None Reported - Past Family History Father Family Medical History: AFIB, Hypertension Medications and Allergies Home Medications Medication Instructions Recorded Confirmed Type Ibuprofen [Motrin] 600 mg PO Q6HR PRN #30 tab 10/17/19 06/19/21 Rx Multivitamin [Multivitamins Adult 1 each PO DAILY 06/19/21 06/19/21 History Gummies] Allergies Allergy/AdvReac Type Severity Reaction Status Date / Time amoxicillin [From Augmentin] AdvReac Rash/Hives Unverified 06/19/21 10:22 clavulanic acid AdvReac Rash/Hives Unverified 06/19/21 10:22 [From Augmentin] Surgical - Exam Vital Signs Temp Pulse Resp BP Pulse Ox 98.2 F 66 16 128/80 100 06/19/21 10:23 06/19/21 10:23 06/19/21 10:23 06/19/21 10:23 06/19/21 10:23 BMI 21.1 - General no distress - Eyes normal ocular movement - ENT no hearing loss - Neck trachea midline - Respiratory normal respiratory effort - Cardiovascular Rhythm: regular Heart Sounds: normal: S1, S2 - Abdomen Abdomen: soft, non tender, no guarding, no rigid, no rebound - Integumentary normal turgor - Neurologic no disoriented, no combative - Musculoskeletal normal gait - Psychiatric oriented to time, oriented to person, oriented to place, speech is normal, memory intact Breast Exam: BRA: 34B inspection: Bladder grade 2 ptosis, bilateral nipple inversion which protrude with examination Palpation: Right breast: Multi-positional exam fibrocystic changes no discrete dominant masses or nodules of concern particularly attention to the area the patient feels this to be fibrocystic breast tissue Right axilla: Shoddy adenopathy non-worrisome Left breast: Multi-positional exam fibrocystic changes no discrete dominant masses or nodules of concern, particularly attention to the area the patient feels appears to be fibrocystic breast tissue Left axilla: Shoddy adenopathy non-worrisome No groin, or cervical adenopathy of concern No enlargement of the liver or spleen Assessment and Plan Assessment: Impression: Fibrocystic breast changes and patient was recently stopped breast-feeding Shotty bilateral non-worrisome adenopathy in the axilla Plan: Recommend bilateral ultrasound if no lesions of concern noted would recommend yearly breast examination If patient notes anything of concern would like to see her sooner Cc: Dr. Brown
== END ==
LOC: WWCWWP 10:08
PROVIDERS: ATTEND Surgery
DX: R59.9 Enlarged lymph nodes, unspecified (principal); N63.10 Unspecified lump in the right breast, unspecified quadrant; N63.20 Unspecified lump in the left breast, unspecified quadrant; N60.11 Diffuse cystic mastopathy of right breast; N60.12 Diffuse cystic mastopathy of left breast; Z88.1 Allergy status to other antibiotic agents

== ENCOUNTER → 2023-10-07 | Outpatient (CLI) | payer BC ==
--- NOTE | 2023-10-07 14:43 | USB ---
Reason for Exam: Clinical finding. Patient History: First Full-Term at age 27. Technique: Method: Targeted. Findings: The lateral section of the breast of the left breast, the axilla of both breasts and the retroareolar of both breasts were scanned. Targeted ultrasound subareolar and periareolar breasts including scanning of the axilla. Dense tissues are present throughout. No discrete abnormality on the right. On the left, some duct ectasia noted at the 9:00 periareolar region. At the 5:00 position, 5 cm from the nipple, incidentally seen circumscribed oval hypoechoic lesion measuring 7 x 7 x 4 mm slight posterior through transmission, likely small fibroadenoma and can be reassessed in 6 months. No other solid or cystic lesion or axillary lymphadenopathy. Overall Assessment: Probably benign, BI-RAD 3 Management: Diagnostic Breast Ultrasound of the left breast in 6 months. Further clinical management of patient's bilateral nipple pain. A clinical breast exam by your physician is recommended on an annual basis and results should be correlated with mammographic findings. This exam should not preclude additional follow-up of suspicious palpable abnormalities. Results were given to the patient verbally at the time of exam. Electronically signed and approved by: Talia Patel M.D. Radiologist
== END | disposition home or self-care (01) ==
LOC: RADMAMWWP 13:36
PROVIDERS: ATTEND Family Medicine
DX: N64.4 Mastodynia (principal)
CPT/HCPCS: 77062; 77066

== ENCOUNTER → 2024-04-09 | Outpatient (CLI) | payer BC ==
--- NOTE | 2024-04-09 11:11 | USB ---
Reason for Exam: Follow-up at short interval from prior study. Patient History: First Full-Term at age 27. Technique: Method: Targeted. Prior Study Comparison: 10/07/2023 Bilateral MG 3D diag mammo w/cad [facility], [facility]. Findings: The lower outer quadrant of the left breast, the axilla of the left breast and the retroareolar of the left breast were scanned. There is an oval slightly hypoechoic area 5:00 position 5 cm nipple currently measuring 0.9 x 1.0 x 0.5 cm. Previous measurement 0.7 x 0.4 x 0.7 cm. Consider ultrasound-guided core biopsy. There is mild prominence of the ducts near the left nipple. Overall Assessment: Suspicious, BI-RAD 4 Management: Surgical Consultation of the left breast. Ultrasound Core Biopsy of the left breast. A clinical breast exam by your physician is recommended on an annual basis and results should be correlated with mammographic findings. This exam should not preclude additional follow-up of suspicious palpable abnormalities. Results were given to the patient verbally at the time of exam. [facility], , 04/09/2024 10:55 AM. Electronically signed and approved by: Kev Roy D.O. Radiologis
== END | disposition home or self-care (01) ==
LOC: RADUSWWP 10:26
PROVIDERS: ATTEND Family Medicine
DX: N64.4 Mastodynia (principal)

== ENCOUNTER → 2024-05-07 | Day surgery (SDC) | payer BC ==
--- NOTE | 2024-05-11 13:58 | MM ---
Reason for Exam: Post Procedure Mammogram. Last screening mammogram was performed 7 month(s) ago. Patient History: First Full-Term at age 27. Prior Study Comparison: 12/22/2021 Bilateral US breast [facility], [facility]. 10/07/2023 Bilateral MG 3D diag mammo w/cad [facility], [facility]. 10/07/2023 Bilateral US breast limited [facility], [facility]. 04/09/2024 Left US breast limited LT, [facility]. Tissue Density: Left: The breasts are heterogeneously dense, which may obscure small masses. Pathology Description: Location: 5 o'clock. Marker Left Behind. Needle Type: Mammotome Cores: 5 Skin Nicks: 1 Gauge: 13 The procedure of ultrasound guided core biopsy was explained to the patient. Benefits, alternatives, and risks were discussed. An informed consent was then obtained. The patient was placed in supine positioning for imaging and for the procedure. The overlying skin was prepped and draped in usual sterile fashion. Lidocaine was used as anesthetic into the skin and subcutaneous tissue up to area of concern in the left breast. A kim was made with surgical scalpel. Under ultrasound guidance, a 12-gauge vacuum assisted biopsy gun device was used to obtain 2 core samples at that time we switched over to 18-gauge core biopsies with 3 core biopsies obtained. Following this, a biopsy clip was left in lesion. The patient tolerated the procedure well without any immediate complication. The patient was kept in the radiology department for short stay after the procedure and then discharged home in stable condition. Postprocedure mammogram: The patient was transferred to mammography for physician ordered post procedure mammogram for clip placement verification. Post procedure mammogram demonstrates appropriate placement of clip. Impression: Successful, uncomplicated ultrasound guided core biopsy of area of concern in the left breast, full pathology results to follow. [facility], , 05/07/2024 2:11 PM. Pathology Results: Result: Benign, Fibroadenoma. Pathology and radiology were reviewed. Findings are concordant. LEFT BREAST, 5:00, ULTRASOUND GUIDED NEEDLE CORE BIOPSY: Fibroadenoma. Overall Assessment: Benign Assessment: MG diagnostic mammo LT wo CAD. - Left: Benign, BI-RAD 2. Management: Surgical Consultation of the left breast. Discuss surgical options. Electronically signed and approved by: Brian Gutiérrez DO
== END ==
LOC: RADUSWWP 12:48
PROVIDERS: ATTEND Family Medicine
DX: D24.2 Benign neoplasm of left breast (principal); R92.8 Other abnormal and inconclusive findings on diagnostic imaging of breast
CPT/HCPCS: 88305; 77065; 19083; A4648

== ENCOUNTER → 2024-06-01 | Outpatient (CLI) | payer BC ==
[2024-06-01 14:59] VITALS: BP 145/80; PULSE 75; RESP 16; TEMP 98.2
--- NOTE | 2024-06-01 15:35 | P.GSCN ---
History of Present Illness Consult date: 06/01/24 Reason for Consult: fibroadenoma of the left breast Requesting physician: Parris Quiñones History of present illness: Jigna is a 34 old female seen in consultation for Dr. Quiñones. She underwent a bilateral breast mammogram in 10-07-2023. This was considered BI-RADS 0 with nothing to correlate to the patient's bilateral pain in the retroareolar region. She then underwent a bilateral breast ultrasound in 10-07-2023. This revealed no discrete abnormality in the right, on the left some duct ectasia was noted. At the 5 o'clock position 5 cm from the nipple there was a 7 x 7 x 4 mm small lesion most likely felt to be a fibroadenoma. A repeat ultrasound of the left breast in 6 months was recommended. The patient underwent a left breast ultrasound in 04-09-2024. This revealed a 0.9 x 1 x 0.5 cm lesion this had increased in size from 0.7 x 0.4 x 0.7 cm. Ultrasound core biopsy was recommended. An ultrasound core biopsy was performed of this on 05 07 24. This was personally reviewed and interpreted. She did not feel anything in her breast. After she finished nursing her second child her nipples became inverted and breast discomfort. She went for evaluation and an ultrasound and mammogram were performed. This revealed a small area in the left breast for which follow-up was recommended. On follow-up it had increased slightly in size and a biopsy was done which revealed a fibroadenoma. This time feel some nodularity at the site of the biopsy. Feel any other lumps masses or nodules of concern in her breast. Prior to this she had not had any surgery on her breast. She is not complaining of any nipple discharge or skin changes. She has not had any recent trauma or infection in the breast. caffiene: 2 cups coffee/day nicotine: none chocolate; daily BCP; 5 years stopped in her s hormones: none Family History: paternal grandfather: leukemia paternal grandmother: colon cancer Hormonal History: menarche: 15 , breat fed: yes, age at first : 28 periods regular: yes, LMP: 2 weeks ago; breast sore prior to cycle Surgical History: left knee twice Medical History: none Social History: nicotine: none alcohol: occasional crugs: none Review of Systems - Constitutional Denies fever, Denies weight loss - EENT Eyes: denies blurred vision Ears: deny: decreased hearing, tinnitus Ears, nose, mouth and throat: Denies dysphagia - Breasts bilateral: as per HPI - Cardiovascular Denies chest pain, Denies shortness of breath - Respiratory Denies cough, Denies 7 - Gastrointestinal Reports as per HPI - Genitourinary Genitourinary: Denies dysuria, Denies hematuria - Musculoskeletal Reports as per HPI - Integumentary Denies rash, Denies unusual bruising - Neurological Denies headaches, Denies syncope - Psychiatric Reports as per HPI - Endocrine Reports as per HPI - Hematologic/Lymphatic Denies easy bleeding, Denies easy bruising - Allergic/Immunologic Reports as per HPI Past Medical History Past Medical History: No Reported History History of Any Multi-Drug Resistant Organisms: None Reported Past Surgical History: Orthopedic Surgery Additional Past Surgical History / Comment(s): knee surgery Past Anesthesia/Blood Transfusion Reactions: No Reported Reaction Past Psychological History: No Psychological Hx Reported Smoking Status: Never smoker Past Alcohol Use History: Occasional Past Drug Use History: None Reported - Past Family History Father Family Medical History: AFIB, Hypertension Medications and Allergies Home Medications Medication Instructions Recorded Confirmed Type Multivitamin [Multivitamins Adult 1 each PO DAILY 06/19/21 06/01/24 History Gummies] Allergies Allergy/AdvReac Type Severity Reaction Status Date / Time azithromycin Allergy Rash/Hives Verified 06/01/24 14:56 [From Zithromax Z-Hubert] amoxicillin [From Augmentin] AdvReac Rash/Hives Unverified 06/01/24 14:56 clavulanic acid AdvReac Rash/Hives Unverified 06/01/24 14:56 [From Augmentin] Surgical - Exam Vital Signs Temp Pulse Resp BP Pulse Ox 98.2 F 75 16 145/80 99 06/01/24 14:56 06/01/24 14:56 06/01/24 14:56 06/01/24 14:56 06/01/24 14:56 - General no distress - Neck trachea midline - Respiratory normal respiratory effort, clear to auscultation - Cardiovascular Rhythm: regular Heart Sounds: normal: S1, S2 - Abdomen Abdomen: soft, non tender, no guarding, no rigid, no rebound - Integumentary normal turgor - Neurologic no disoriented, no combative - Musculoskeletal normal gait - Psychiatric oriented to time, oriented to person, oriented to place, speech is normal, memory intact Breast Exam: BRA: 34A Inspection: Bilateral nipple inversion, there is an appearance on the lateral aspect 5 o'clock position of the left breast of some fullness which would be consistent with the fibroadenoma Palpation: Right breast: Multi positional exam fibroglandular breast tissue no dominant masses or nodules of concern Right axilla: Shotty adenopathy Left breast: Multi positional exam fibroglandular breast tissue, at the 5 o'clock position there is some fullness consistent with the biopsy-proven fibroadenoma approximately 1 cm in size Left axilla: No adenopathy adenopathy of concern but some shotty adenopathy is present Results Chad and ultrasound personally reviewed and interpreted Assessment and Plan Assessment: Impression: Bilateral fibrocystic breast disease Fibroadenoma biopsy-proven left breast increasing in size/palpable Bilateral inverted nipples chronic Plan: Consider resection of palpable fibroadenoma left breast we will do a needle localization of this area Patient will be scheduled for resection in 2 months. She will be seen again in a month and a half if the area has resolved because the palpable nodularity is related to hematoma from the core biopsy the most likely we will follow her conservatively. If the area remains palpable then we we will resect this area. If the area increases in size prior to that then we would do a resection prior t o a month and a half. At this time the patient will be seen again in a month and a half and we will schedule her for resection of the fibroadenoma in approximately 2 months. CC: Dr. Quiñones
== END ==
LOC: WWCWWP 14:30
PROVIDERS: ATTEND Surgery
DX: N60.11 Diffuse cystic mastopathy of right breast (principal); N60.12 Diffuse cystic mastopathy of left breast; N60.22 Fibroadenosis of left breast; N64.53 Retraction of nipple; Z88.1 Allergy status to other antibiotic agents; Z88.8 Allergy status to other drugs, medicaments and biological substances; Z88.0 Allergy status to penicillin

== ENCOUNTER → 2024-07-19 | Outpatient (CLI) | payer BC ==
[2024-07-19 14:23] VITALS: BP 128/84; PULSE 72; RESP 17; TEMP 97.1
--- NOTE | 2024-07-19 14:32 | P.PN ---
Subjective Progress Note Date: 07/19/24 07-19-24 Reason for Consult: fibroadenoma of the left breast Requesting physician: Parris Quiñones History of present illness: Jigna is a 34 old female seen in consultation for Dr. Quiñones. She underwent a bilateral breast mammogram in 10-07-2023. This was considered BI-RADS 0 with nothing to correlate to the patient's bilateral pain in the retroareolar region. She then underwent a bilateral breast ultrasound in 10-07-2023. This revealed no discrete abnormality in the right, on the left some duct ectasia was noted. At the 5 o'clock position 5 cm from the nipple there was a 7 x 7 x 4 mm small lesion most likely felt to be a fibroadenoma. A repeat ultrasound of the left breast in 6 months was recommended. The patient underwent a left breast ultrasound in 04-09-2024. This revealed a 0.9 x 1 x 0.5 cm lesion this had increased in size from 0.7 x 0.4 x 0.7 cm. Ultrasound core biopsy was recommended. An ultrasound core biopsy was performed of this on 05 07 24. This was personally reviewed and interpreted. She did not feel anything in her breast. After she finished nursing her second child her nipples became inverted and breast discomfort. She went for evaluation and an ultrasound and mammogram were performed. This revealed a small area in the left breast for which follow-up was recommended. On follow-up it had increased slightly in size and a biopsy was done which revealed a fibroadenoma. This time feel some nodularity at the site of the biopsy. Feel any other lumps masses or nodules of concern in her breast. Prior to this she had not had any surgery on her breast. She is not complaining of any nipple discharge or skin changes. She has not had any recent trauma or infection in the breast. At this time she is not having pain in her breast although the lump is clearly palpable. She understands that this was a biopsy-proven fibroadenoma and she would like to avoid surgery if at all possible. caffiene: 2 cups coffee/day nicotine: none chocolate; daily BCP; 5 years stopped in her ,s hormones: none Family History: paternal grandfather: leukemia paternal grandmother: colon cancer Hormonal History: menarche: 15 , breat fed: yes, age at first : 28 periods regular: yes, LMP: 2 weeks ago; breast sore prior to cycle Surgical History: left knee twice Medical History: none Social History: nicotine: none alcohol: occasional crugs: none Review of Systems - Constitutional Denies fever, Denies weight loss - EENT Eyes: denies blurred vision Ears: deny: decreased hearing, tinnitus Ears, nose, mouth and throat: Denies dysphagia - Breasts bilateral: as per HPI - Cardiovascular Denies chest pain, Denies shortness of breath - Respiratory Denies cough, Denies 7 - Gastrointestinal Reports as per HPI - Genitourinary Genitourinary: Denies dysuria, Denies hematuria - Musculoskeletal Reports as per HPI - Integumentary Denies rash, Denies unusual bruising - Neurological Denies headaches, Denies syncope - Psychiatric Reports as per HPI - Endocrine Reports as per HPI - Hematologic/Lymphatic Denies easy bleeding, Denies easy bruising - Allergic/Immunologic Reports as per HPI Past Medical History Past Medical History: No Reported History History of Any Multi-Drug Resistant Organisms: None Reported Past Surgical History: Orthopedic Surgery Additional Past Surgical History / Comment(s): knee surgery Past Anesthesia/Blood Transfusion Reactions: No Reported Reaction Past Psychological History: No Psychological Hx Reported Smoking Status: Never smoker Past Alcohol Use History: Occasional Past Drug Use History: None Reported - Past Family History Father Family Medical History: AFIB, Hypertension Medications and Allergies Home Medications Medication Instructions Recorded Confirmed Type Multivitamin [Multivitamins Adult 1 each PO DAILY 06/19/21 06/01/24 History Gummies] Allergies Allergy/AdvReac Type Severity Reaction Status Date / Time azithromycin Allergy Rash/Hives Verified 06/01/24 14:56 [From Zithromax Z-Hubert] amoxicillin [From Augmentin] AdvReac Rash/Hives Unverified 06/01/24 14:56 clavulanic acid AdvReac Rash/Hives Unverified 06/01/24 14:56 [From Augmentin] Objective - Constitutional General appearance: Present: cooperative - EENT Eyes: Present: EOMI ENT: Present: hearing grossly normal - Neck Neck: Present: normal ROM - Respiratory Respiratory: bilateral: CTA - Cardiovascular Rhythm: regular Heart sounds: normal: S1, S2 - Integumentary Integumentary: Present: normal turgor - Musculoskeletal Musculoskeletal: Present: gait normal - Psychiatric Psychiatric: Present: A&O x's 3, appropriate affect, intact judgment & insight - Additional findings Additional findings: Breast Exam: BRA: 34A Inspection: Bilateral nipple inversion, there is an appearance on the lateral aspect 5 o'clock position of the left breast of some fullness which would be consistent with the fibroadenoma Palpation: Right breast: Multi positional exam fibroglandular breast tissue no dominant masses or nodules of concern Right axilla: Shotty adenopathy Left breast: Multi positional exam fibroglandular breast tissue, at the 5 o'clock position there is some fullness consistent with the biopsy-proven fibroadenoma approximately 1 cm in size, palpable today since any inflammation from her biopsy has resolved Left axilla: No adenopathy adenopathy of concern but some shotty adenopathy is present Assessment and Plan Assessment: Impression: Bilateral fibrocystic breast disease Fibroadenoma biopsy-proven left breast increasing in size/palpable/to avoid surgery if at all possible and wishes to have this followed conservatively Bilateral inverted nipples chronic Plan: Repeat left breast ultrasound in 6 months with examination at that time We will cancel surgery at this time secondary to patient wishing to avoid surgery, she understands that this may increase in size and if it becomes symptomatic or increases in size then resection is recommended Follow-up sooner any questions or concerns CC: Dr. Quiñones
== END ==
LOC: WWCWWP 14:14
PROVIDERS: ATTEND Surgery
DX: N60.11 Diffuse cystic mastopathy of right breast (principal); D24.2 Benign neoplasm of left breast; N64.59 Other signs and symptoms in breast; Z88.1 Allergy status to other antibiotic agents; Z88.0 Allergy status to penicillin

== ENCOUNTER → 2024-10-18 | Outpatient (CLI) | payer BC ==
--- NOTE | 2024-10-18 13:09 | CT ---
EXAMINATION TYPE: CT pelvis w con DATE OF EXAM: 10/18/2024 12:53 PM COMPARISON: None. CLINICAL INDICATION: Female, 34 years old with history of R59.0; swollen lympnode x 2 months TECHNIQUE: Axial CT pelvis w con;Sagittal and coronal reformats were created on a separate workstati on. Contrast used:100 mL of Isovue 300 with IV Contrast, (none if empty) Oral contrast used: with Oral Contrast (none if empty) CT DLP: 619 mGycm, Automated exposure control for dose reduction was used. FINDINGS: BLADDER: No evidence for wall thickening or mass given limitations of exam. REPRODUCTIVE: Unremarkable. ABDOMEN & PELVIS STOMACH AND BOWEL: No evidence of bowel obstruction. The appendix is not definitively visualized. PERITONEUM/RETROPERITONEUM: No evidence of pneumoperitoneum or free fluid. VASCULATURE: No evidence of aortic aneurysm. Dilated pelvic vessels are seen bilaterally MUSCULOSKELETAL: No acute osseous abnormalities LYMPH NODES: No gross evidence for lymphadenopathy. 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 No other acute abdominal process. N o lymphadenopathy. Report lymph nodes not definitively visualized. [facility], , 10/18/2024 1:07 PM
== END | disposition home or self-care (01) ==
LOC: RADCTMAIN 10:40
PROVIDERS: ATTEND Family Medicine
DX: N94.89 Other specified conditions associated with female genital organs and menstrual cycle (principal); R59.0 Localized enlarged lymph nodes
CPT/HCPCS: 72193; Q9967